=== PATIENT | male | born 1935 | race Two or more races ===

== ENCOUNTER 2017-03-16 23:42 | Emergency (ER) | payer OTHER ==
[~2017-03-16] VITALS: Ht 170.2 cm; Wt 70.5 kg
[2017-03-16] MEDS ORDERED: PHEN50 PO (23:53)
[2017-03-16] MEDS ORDERED: TRAM50TA4 PO (23:53)
[2017-03-16] MEDS ORDERED: FURO20 PO (23:53)
[2017-03-16] MEDS ORDERED: TAMS0.4C32 PO (23:53)
[2017-03-16] MEDS ORDERED: DONE5TAB5 PO (23:53)
[2017-03-16] MEDS ORDERED: VALP250 PO (23:53)
[2017-03-16] MEDS ORDERED: FINA5TAB41 PO (23:53)
[2017-03-16] MEDS ORDERED: ASPI-989 PO (23:53)
[2017-03-16] MEDS ORDERED: MIRT15 PO (23:53)
[2017-03-16] MEDS ORDERED: PREDAOS OU (23:56)
[2017-03-16] MEDS ORDERED: ATOR20TA86 PO (23:56)
[2017-03-16] MEDS ORDERED: KETO.5OS OP (23:56)
[2017-03-16] MEDS ORDERED: OFLO35OS OP (23:56)
[2017-03-17 00:48] LABS: BASOPHILS # (AUTO) 0.02 K/uL (0.00-0.20); BASOPHILS % (AUTO) 0.2 % (0.0-2.0); EOSINOPHILS % (AUTO) 0 % (1.0-6.0); HEMATOCRIT 34.9 % (41-53); LYMPHOCYTES # (AUTO) 0.2 K/uL (1.0-4.8); LYMPHOCYTES % (AUTO) 2.2 % (22.0-44.0); MEAN CORPUSCULAR HEMOGLOBIN 31.6 pg (26.0-34.0); MEAN CORPUSCULAR HGB CONC 34.3 G/dL (31.0-37.0); MEAN CORPUSCULAR VOLUME 92 fL (80-100); MONOCYTES % (AUTO) 0.4 % (2.0-9.0); NEUTROPHILS # (AUTO) 9.1 K/uL (1.8-7.7); RED BLOOD CELL COUNT(AUTO) 3.79 MIL/uL (4.50-5.90); RED CELL DISTRIBUTION WIDTH 13.1 % (11.5-14.5)
[2017-03-17 00:49] LABS: ANION GAP 7 mmol/L (8-16); CALCIUM, TOTAL 8.1 mg/dL (8.8-10.5); CARBON DIOXIDE 28 mmol/L (22-29); CHLORIDE 102 mmol/L (98-107); GLOMERULAR FILTR. RATE CALC > 60 mL/min (>60); GLUCOSE,RANDOM 163 mg/dL (70-110); NEUTROPHILS % (AUTO) 97.2 % (40.0-70.0); POTASSIUM 3.7 mmol/L (3.5-5.1); SODIUM SERUM 137 mmol/L (136-145); UREA NITROGEN, BLOOD 22 mg/dL (7-18)
[2017-03-17 00:55] LABS: ALANINE AMINOTRANSFERASE 14 U/L (12-78); ALBUMIN 2.9 g/dL (3.4-5.0); ALKALINE PHOSPHATASE 234 U/L (46-116); ASPARTATE AMINOTRANSFERASE 29 U/L (15-37); BILIRUBIN,TOTAL 0.4 mg/dL (0.1-1.0); TOTAL PROTEIN, SERUM 6.5 g/dL (6.4-8.2)
[2017-03-17] MEDS ORDERED: ACETAMINOPHEN 325 MG TABLET PO ONE (01:00)
[2017-03-17] MEDS ORDERED: SODIUM CHLORIDE 0.9% 1,000 ML IV ONE ×2 (01:00→04:15)
[2017-03-17] MEDS ORDERED: KETOROLAC TROMETHAMINE 30 MG/ML VIAL IVP ONE (01:00)
[2017-03-17] MEDS ORDERED: ACETAMINOPHEN 650 MG RECTAL SUPPOSITORY PR ONE (01:15)
[2017-03-17 01:17] LABS: PLATELET COUNT (AUTO) 120 K/uL (150-450)
[2017-03-17 01:24] LABS: LIPASE 53 U/L (73-393)
[2017-03-17 01:28] LABS: INFLUENZA TYPE A NEGATIVE FOR TYPE A (NEGATIVE); INFLUENZA TYPE B NEGATIVE FOR TYPE B (NEGATIVE)
[2017-03-17] MEDS ORDERED: CLINDAMYCIN 600 MG/D5% WATER 50 ML IV ONE (03:15)
[2017-03-17 04:19] LABS: APPEARANCE,URINE TURBID (CLEAR); BILIRUBIN,URINE NEGATIVE (NEGATIVE); GLUCOSE, URINE (UA) NEGATIVE (NEGATIVE); KETONES,URINE NEGATIVE (NEGATIVE); LEUKOCYTE ESTERASE ,URINE SMALL (NEGATIVE); NITRATE,URINE POSITIVE (NEGATIVE); OCCULT BLOOD,URINE MODERATE (NEGATIVE); PH,URINE 6.5 (5.0-8.0); PROTEIN,URINE TRACE (NEGATIVE)
[2017-03-17 04:30] LABS: BACTERIA,URINE Many /HPF (None Seen)
[2017-03-17] MEDS ORDERED: PIPERACILLIN/TAZO 3.375 GM/D5W 50 ML IV ONE (04:30)
[2017-03-17 05:14] VITALS: BP 106/50
== END 2017-03-17 05:23 | disposition short-term general hospital (02) ==
LOC: EMS 23:47
DX: L03.113 Cellulitis of right upper limb (principal); N39.0 Urinary tract infection, site not specified; I11.0 Hypertensive heart disease with heart failure; I50.9 Heart failure, unspecified; E78.00 Pure hypercholesterolemia, unspecified
CPT/HCPCS: 36415; 51702; 71045; 73080; 80053; 81001; 83605; 83690; 84484; 85025; 87040; 87077; 87086; 87186; 87804; 93005; 93971; 96361; 96365; 96367; 96375; 99285; J1885; J2543; J3490; J7030